=== PATIENT | female | born 1995 | race American Indian/Alaskan Native ===

== ENCOUNTER 2017-04-06 11:05 | Emergency (ER) | payer MEDICAID ==
[2017-04-06 11:11] VITALS: BP 112/80
[2017-04-06] MEDS ORDERED: NACL 0.9% 1000 ML 1,000 ML IV ONE (12:46)
--- NOTE | 2017-04-06 12:46 | Emergency Department Report ---
Chief Complaint: Dizziness Stated Complaint: SYNCOPE Time Seen by Provider: 04/06/17 12:17 - HPI History of Present Illness: Patient is a 21-year-old Portuguese female who is presenting with a syncopal episode. Patient states this morning she got up too fast to wang to get something for her small child and felt dizzy and " passed out". Patient states she feels fine now. Patient has had several episodes throughout her life where she has had similar occurrences. Patient states that she has had a history of anemia. However she states that her last several menstrual periods were not. The normal. Patient states the last episode of syncope that she did have was when she was . She states she does not think she is at this time. Patient denies any chest pain shortness of breath or headache fevers chills nausea vomiting diarrhea or cough at this time - Exam Vital Signs: Vital Signs 04/06/17 11:07 Temperature 98.5 F Pulse Rate 65 Respiratory 18 Rate Blood Pressure 112/80 O2 Sat by Pulse 99 Oximetry Physical Exam: Focused 6 focus physical exam is essentially negative general exam patient is well-developed in no acute distress heart exam S1-S2 no murmurs gallops or rubs abdomen soft nontender lungs clear to auscultation no exam no focal deficits MSE screening note: Focused history and physical exam performed. Due to findings the following was ordered: test and urinalysis will be performed here and fast track as well as a CBC and BMP. EKG will be performed as well ED Disposition for MSE Condition: Stable Referrals: KIM MIKE MD [Primary Care Provider] - 3-5 Days
[2017-04-06 13:08] LABS: Basophils % (Auto) 0.2 % (0.0-1.8); Eosinophils % (Auto) 0.8 % (0.0-4.3); Hematocrit 41.6 % (30.3-42.9); Hemoglobin 13.8 gm/dl (10.1-14.3); Mean Corpuscular HGB Conc 33 % (30-34); Mean Corpuscular Hemoglobin 30 pg (28-32); Mean Corpuscular Volume 91 fl (79-97); Platelet Count 216 K/mm3 (140-440); Red Blood Count 4.58 M/mm3 (3.65-5.03); Red Cell Distribution Width 13.1 % (13.2-15.2); White Blood Count 8.1 K/mm3 (4.5-11.0)
[2017-04-06 13:42] LABS: Anion Gap 19 mmol/L; BUN/Creatinine Ratio 13; Blood Urea Nitrogen 9 mg/dL (7-17); Calcium 9.4 mg/dL (8.4-10.2); Carbon Dioxide 24 mmol/L (22-30); Chloride 101.2 mmol/L (98-107); Glucose 96 mg/dL (65-100); Potassium 3.7 mmol/L (3.6-5.0); Sodium 140 mmol/L (137-145)
[2017-04-06 13:51] LABS: Bacteria,Urine 1+ /HPF (Negative); Bilirubin,Urine NEG (Negative); Blood,Urine LG (Negative); Ketones,Urine NEG (Negative); Leukocyte Esterase,Urine TR (Negative); Mucus,Urine 3+ /HPF; Nitrite,Urine NEG (Negative)
--- NOTE | 2017-04-06 14:34 | Emergency Department Report ---
HPI - General Chief Complaint: Dizziness Time Seen by Provider: 04/06/17 12:17 - HPI HPI: This is a 21-year-old female who presents to ED status post dizziness and possible syncopal episode. Patient had no other complaints. Patient was initially screened by Dr. Patel, See MSE note for HPI. ED Past Medical Hx - Past Medical History Previous Medical History?: Yes Hx Hypertension: No Hx Congestive Heart Failure: No Hx Diabetes: No Hx Deep Vein Thrombosis: No Hx Renal Disease: No Hx Sickle Cell Disease: No Hx Seizures: No Hx Asthma: No Hx COPD: No Hx HIV: No Additional medical history: Vaginal dleivery 08-05-2016 - Surgical History Past Surgical History?: No - Social History Smoking Status: Never Smoker Substance Use Type: None - Medications Home Medications: Home Medications Medication Instructions Recorded Confirmed Last Taken Type Sulfamethoxazole/Trimethoprim 1 each PO BID #14 tablet 04/06/17 Unknown Rx [Bactrim DS TAB] ED Review of Systems ROS: Stated complaint: SYNCOPE Other details as noted in HPI Constitutional: denies: chills, fever Eyes: denies: eye pain, eye discharge, vision change ENT: denies: ear pain, throat pain Respiratory: denies: cough, shortness of breath, wheezing Cardiovascular: denies: chest pain, palpitations Endocrine: no symptoms reported Gastrointestinal: denies: abdominal pain, nausea, vomiting, diarrhea Genitourinary: denies: urgency, dysuria, discharge Musculoskeletal: denies: back pain, joint swelling, arthralgia Skin: denies: rash, lesions Neurological: denies: headache, weakness, numbness, paresthesias Psychiatric: denies: anxiety, depression Hematological/Lymphatic: denies: easy bleeding, easy bruising Physical Exam - Physical Exam Vital Signs: Vital Signs 04/06/17 11:07 Temperature 98.5 F Pulse Rate 65 Respiratory 18 Rate Blood Pressure 112/80 O2 Sat by Pulse 99 Oximetry Physical Exam: GENERAL: Alert and oriented x3, no apparent distress, Normal Gait, atraumatic. HEAD: Head is normocephalic and a-traumatic. EYES: Extra ocular muscles are intact. Pupils are equal, round, and reactive to light and accommodation. EARS: symetrical, atraumatic, non tender, ear canal clear and moderate cerumen, tympanic membrance non inflamed. gross auditory nml bilaterally. NOSE: Nose symetrical, Nontender,Nares appeared normal. MOUTH:Mouth is well hydrated and without lesions. Tonsils nonerythematous or swollen, Uvula midline, Tongue not elevated. Mucous membranes are moist. Posterior pharynx clear, no exudate or lesions. Patent airways. NECK: Supple. Non edematous, No carotid bruits. No lymphadenopathy or thyromegaly. No C-spine tenderness LUNGS: Symetrical with respiration, No wheezing, no rales or crackles, CTAB. HEART: S1, S2 present, regular rate and rhythm without murmur, no rubs, no gallops. Non tender to palpation ABDOMEN: No organomegaly was noted,Positive bowel sounds, soft, and non- distended. . Nontender to palpation on all Quadrants, EXTREMITIES/MUSCULOSKELETAL: No cyanosis, clubbing, rash, lesions or edema. Full ROM bilaterally. UE/LE Pulses 2+ bilaterally. LE and UE 5+ strength bilaterally, NEUROLOGIC: The patient is cooperative with no focal neurologic deficits. SKIN: Warm and dry, No lesions, No ulceration or induration present. ED Course Vital Signs 04/06/17 11:07 Temperature 98.5 F Pulse Rate 65 Respiratory 18 Rate Blood Pressure 112/80 O2 Sat by Pulse 99 Oximetry ED Medical Decision Making - Lab Data Result diagrams: 04/06/17 13:00 04/06/17 13:00 Lab Results 04/06/17 04/06/17 04/06/17 Range/Units 13:00 13:00 13:22 WBC 8.1 (4.5-11.0) K/mm3 RBC 4.58 (3.65-5.03) M/mm3 Hgb 13.8 (10.1-14.3) gm/dl Hct 41.6 (30.3-42.9) % MCV 91 (79-97) fl MCH 30 (28-32) pg MCHC 33 (30-34) % RDW 13.1 L (13.2-15.2) % Plt Count 216 (140-440) K/mm3 Lymph % (Auto) 29.3 (13.4-35.0) % [place] % (Auto) 5.7 (0.0-7.3) % Eos % (Auto) 0.8 (0.0-4.3) % Baso % (Auto) 0.2 (0.0-1.8) % Lymph # 2.4 (1.2-5.4) K/mm3 [place] # 0.5 (0.0-0.8) K/mm3 Eos # 0.1 (0.0-0.4) K/mm3 Baso # 0.0 (0.0-0.1) K/mm3 Seg Neutrophils % 64.0 (40.0-70.0) % Seg Neutrophils # 5.2 (1.8-7.7) K/mm3 Sodium 140 (137-145) mmol/L Potassium 3.7 (3.6-5.0) mmol/L Chloride 101.2 (98-107) mmol/L Carbon Dioxide 24 (22-30) mmol/L Anion Gap 19 mmol/L BUN 9 (7-17) mg/dL Creatinine 0.7 (0.7-1.2) mg/dL Estimated GFR > 60 ml/min BUN/Creatinine Ratio 13 % Glucose 96 (65-100) mg/dL Calcium 9.4 (8.4-10.2) mg/dL Urine Color Yellow (Yellow) Urine Turbidity Clear (Clear) Urine pH 5.0 (5.0-7.0) Ur Specific [place] 1.033 H (1.003-1.030) Urine Protein 30 mg/dl (Negative) mg/dL Urine Glucose (UA) Neg (Negative) mg/dL Urine Ketones Neg (Negative) mg/dL Urine Blood Lg (Negative) Urine Nitrite Neg (Negative) Ur Reducing Substances Not Reportable Urine Bilirubin Neg (Negative) Urine Ictotest Not Reportable Urine Urobilinogen 2.0 (<2.0) mg/dL Ur Leukocyte Esterase Tr (Negative) Urine WBC (Auto) 15.0 H (0.0-6.0) /HPF Urine RBC (Auto) 5.0 (0.0-6.0) /HPF U Epithel Cells (Auto) 13.0 (0-13.0) /HPF Urine Bacteria (Auto) 1+ (Negative) /HPF Urine Mucus 3+ /HPF Urine HCG, Qual Negative (Negative) - EKG Data EKG shows normal: sinus rhythm Rate: normal - EKG Data 04/06/17 14:41 Normal EKG, no stemi - Medical Decision Making 21-year-old female presents with syncopal episode. ED course: Patient is in no acute or respiratory distress. Vital signs stable. Patient reports feeling better and is in no pain. CBC: Within normal limits CMP:within normal limits Urinalysis, positive for bacteria. UPT: Negative EKG: See above, nml Head CT: Not indicated per Dr Patel, pt had so symptoms i.e headache, trauma, neuro deficits. Discussed with patient lab findings -see above Patient is a low risk due to [place] syncopy rule. Patient has no history of congestive heart failure, hematocrit greater than 30, EKG within normal limits, denies shortness of breath and systolic pressure greater than 90. Orthostatic blood pressure: Normal Patient states she understands and will comply to follow-up. [place] referral given premature physician referral given. Patient will be given antibiotics to treat UTI Discussed with patient if she has some worsening or new episodes return to ED. Critical care attestation.: If time is entered above; I have spent that time in minutes in the direct care of this critically ill patient, excluding procedure time. ED Disposition Clinical Impression: UTI (urinary tract infection), Episode of syncope Disposition: TO HOME OR SELFCARE Is pt being admited?: No Does the pt Need Aspirin: No Condition: Stable Instructions: Urinary Tract Infection in Women (ED), Syncope (ED) Additional Instructions: Make sure to follow up with the primary care physician as discussed. Take all your medications as you've been prescribed. If you have any worsening symptoms or develop new symptoms please return to ED immediately. Labs are normal on Septra your urine. Urine, positive some bacteria. Prescriptions: Sulfamethoxazole/Trimethoprim [Bactrim DS TAB] 1 each PO BID #14 tablet Referrals: KIM MIKE MD [Primary Care Provider] - 3-5 Days NOEMÍ HECK MD [Staff Physician] - 3-5 Days [facility] [Outside] - 3-5 Days [facility] [Outside] - 3-5 Days Forms: Work/School Release Form Time of Disposition: 14:40
== END 2017-04-06 14:54 | disposition home or self-care (01) ==
LOC: ED 11:05
DX: N30.01 Acute cystitis with hematuria (principal); R55 Syncope and collapse
CPT/HCPCS: 36415; 80048; 81001; 81025; 85025; 93005; 93010; 96360; 99283; J7030

== ENCOUNTER 2018-07-06 13:22 | Outpatient (CLI) | payer MEDICAID ==
[2018-07-06 14:56] LABS: Bilirubin,Urine NEG (Negative); Blood,Urine NEG (Negative); Color,Urine Colorless (Yellow); Protein,Urine <15 mg/dL mg/dL (Negative); Urobilinogen,Urine < 2.0 mg/dL (<2.0)
[2018-07-06] MEDS ORDERED: LACTATED RINGERS 500 ML IV ONE (14:58)
--- NOTE | 2018-07-06 18:03 | Ultrasound Report ---
PROCEDURE: US OB BPP WO NON-STRESS TECHNIQUE: Limited ultrasound for BPP HISTORY: well being COMPARISONS: None FINDINGS: LMP 11/22/2017 clinical Age : 32W 2 D LMP EDC 08/29/18 Biophysical profile scoring [2]movement [2]tone [2]breathing [2]fluid 11/29 overall score Cardiac motion: 135 BPM using M-mode doppler Amniotic Fluid Volume: Adequate HARSHA: 16.5 cm (normal) IMPRESSION: Single viable with 11/29 biophysical profile score This document is electronically signed by Marylu Fuentes MD., July 06 2018 06:01:18 PM ET
--- NOTE | 2018-07-06 18:23 | Ultrasound Report ---
PROCEDURE: US OB LIMITED TECHNIQUE: Limited OB ultrasound HISTORY: Leaking fluid and position COMPARISONS: 12/11/2017 FINDINGS: LMP: 11/22/2017 Clinical Age: 32 W 2D LMP EDC: 08/29/2018 Presentation: Cephalic Activity: Monitored Cardiac motion: 135 BPM using M-mode doppler Amniotic Fluid Volume: Adequate HARSHA 16.5 cm (normal) IMPRESSION: Single intrauterine viable with an approximate age of 32 weeks 2 days. Normal HARSHA. Cephalic position This document is electronically signed by Marylu Fuentes MD., July 06 2018 06:21:57 PM ET
[2018-07-06 18:24] VITALS: BP 98/51
== END 2018-07-06 19:55 | disposition home or self-care (01) ==
LOC: TRG 13:22
PROVIDERS: ATTEND Obstetrics & Gynecology
DX: O47.03 False labor before 37 completed weeks of gestation, third trimester (principal); Z3A.32 32 weeks gestation of pregnancy
CPT/HCPCS: 36415; 76815; 76819; 81001; 82731; J7120